=== PATIENT | male | born 1935 | race Caucasian/White ===

== ENCOUNTER 2017-04-05 17:46 | Inpatient (IN) | payer MEDICARE ==
[~2017-04-05 17:46] MED LIST: ANEXSIA 5/325 M1 TAB PO; ANTIVERT25 MG PO; ASPIR 8181 M1 PO; ASPIR-TRIN325 M2 PO; ASPIRIN325 M1 PO; ATIVAN0.5 MG PO; ATIVAN1 M2 PO; CARISOPRODOL350 MG PO; CEFTRIAXONE2 GM IV; COMBIVENT INH14.7 GM IH; COMBIVENT1 PUFF INH; CPAP; DELTASONE50 MG PO; DULCOLAX5 M1 PO; ENALAPRIL MALEAT5 M1 PO; FUROSEMIDE20 M1 PO; GLUCOSAMINE CH1 EAC6 PO; GLUCOSAMINE1000 M1 PO; IPRAT-ALBUT 0.5-3 ML IH; LEVAQUIN500 MG PO; LIPITOR10 M1 PO; LOPRESSOR50 MG PO; LORAZEPAM0.5 MG PO; LORAZEPAM2 MG PO; METOPROLOL TART50 M2 PO; MILK OF MAGNESIA PO; MIRALAX12 EA PO; MIRALAX17 G2 PO; MOBIC15 M2 PO; NAPROXEN SODIU220 M2 PO; NITROSTAT0.4 MG SL; NO MEDS; NYSTATIN60 ML PO; OMEPRAZOLE20 M3 PO; OXYGEN; PREDNISONE10 MG PO; PROTONIX40 M2 PO; ROXICODONE5 M2 PO; SIMVASTATIN10 M1 PO; SIMVASTATIN10 MG PO; STOOL SOFTENER1 EAC4 PO; STOOL SOFTENER100 M3 PO; SYMBICORT 160-4.6 GM IH; TASPRIN325 MG PO; TRAMADOL HCL50 M2 PO; TUMS200 MG PO; TYLENOL325 M2 PO; VITAMIN D2000 UNI1 PO
[2017-04-05 19:25] LABS: BASO % 0.1 % (0-2); EOS % 2.6 % (0-7); EOSINOPHIL ABSOLUTE COUNT 0.2 tho/cmm (0.0-0.7); HCT-HEMATOCRIT 40.5 % (36.0-53.5); HGB-HEMOGLOBIN 14.4 gm/dl (13.5-17.0); IMMATURE GRANULOCYTES ABSOLUTE 0.03 tho/cmm (0-0.03); IMMATURE GRANULOCYTES PERCENT 0.3 % (0-0.3); LYMPH % 14.5 % (20-45); LYMPH ABSOLUTE COUNT 1.3 tho/cmm (0.8-4.5); MCH (MEAN CORPUSCULAR HGB) 32.2 pg (28.0-32.0); MCHC MEAN CORPUSCULAR HGB CONC 35.6 % (32.0-36.0); MCV (MEAN CELL VOLUME) 90.6 fl (82.0-96.0); MEAN PLATELET VOLUME 10.7 cmc (9.4-12.4); MONO % 10.3 % (0-12); MONOCYTE ABSOLUTE COUNT 0.9 tho/cmm (0.0-1.2); NEUTROPHIL ABSOLUTE COUNT 6.5 tho/cmm (1.6-8.0); NEUTROPHIL-AUTOMATED 6.5 tho/cmm (1.6-8.0); NEUTROPHILS % 72.2 % (40-80); PLATELET COUNT 206 tho/cmm (150-450); RED BLOOD COUNT 4.47 mil/cmm (4.40-5.70); RED CELL DISTRIBUTION WIDTH 13.1 % (12.4-16.4)
[2017-04-05 19:26] LABS: ANION GAP 14 mmol/L (0-20); BLOOD UREA NITROGEN 14 mg/dl (6-24); CALCIUM 8.9 mg/dl (8.5-10.5); CARBON DIOXIDE-VENOUS 26 mmol/L (22-32); CHLORIDE 104 mmol/l (96-110); CREATININE 0.94 mg/dl (0.60-1.30); GLUCOSE 121 mg/dL (70-110); POTASSIUM 3.8 mmol/L (3.7-5.1); SODIUM 140 mmol/L (135-145); eGFR VALUE FOR BLACK 89 mL/Min
[2017-04-05 19:38] LABS: PROCALCITONIN 0.18 ng/ml (0.05-0.09)
[2017-04-05 20:16] LABS: ALB/GLOB RATIO 0.9 (0.8-2.0); ALBUMIN 3.3 g/dl (3.5-5.0); BILIRUBIN,DIRECT 0.2 mg/dl (0.0-0.3); BILIRUBIN,INDIRECT 0.4 mg/dL (0.0-1.0); BILIRUBIN,TOTAL 0.6 mg/dl (0.0-1.5)
[2017-04-05 20:22] LABS: URINE BILIRUBIN NEGATIVE (NEG); URINE BLOOD NEGATIVE (NEG); URINE GLUCOSE (UA) NEGATIVE (NEG); URINE KETONE NEGATIVE (NEG); URINE LEUKOCYTE ESTERASE NEGATIVE (NEG); URINE NITRITE NEGATIVE (NEG); URINE PROTEIN SMALL (NEG); URINE SPECIFIC GRAVITY 1.015 (1.003-1.030)
[2017-04-05 20:24] LABS: URINE COLOR YELLOW
[2017-04-05 20:25] LABS: URINE APPEARANCE CLEAR
[2017-04-05 20:27] LABS: URINE MUCUS 1+
[2017-04-05 20:28] LABS: URINE EPITHELIAL CELLS 0-1 /[HPF] (0-10); URINE RBC 0-3 /[HPF] (0-5); URINE WBC 0-2 /[HPF] (0-5)
[2017-04-05] MEDS ORDERED: TOPROL XL50 M1 PO (20:52)
[2017-04-05] MEDS ORDERED: CENTRUM COMPLE1 EAC1 PO (20:53)
[2017-04-06] MEDS ORDERED: ATIVAN1 M2 PO (09:51)
[2017-04-06] MEDS ORDERED: ELIQUIS5 M1 PO (09:52)
[2017-04-06] MEDS ORDERED: ALEVE220 M3 PO (09:53)
[2017-04-06 09:58] LABS: INR 1.1 INR (0.9-1.1); PROTHROMBIN TIME 12.9 SECONDS (9.0-13.6)
[2017-04-06 10:08] LABS: ALB/GLOB RATIO 0.9 (0.8-2.0); ALBUMIN 2.9 g/dl (3.5-5.0); BILIRUBIN,DIRECT 0.2 mg/dl (0.0-0.3); BILIRUBIN,INDIRECT 0.4 mg/dL (0.0-1.0); BILIRUBIN,TOTAL 0.6 mg/dl (0.0-1.5)
[2017-04-06 17:50] LABS: URINE BILIRUBIN NEGATIVE (NEG); URINE BLOOD NEGATIVE (NEG); URINE GLUCOSE (UA) NEGATIVE (NEG); URINE KETONE NEGATIVE (NEG); URINE LEUKOCYTE ESTERASE NEGATIVE (NEG); URINE NITRITE NEGATIVE (NEG); URINE PROTEIN NEGATIVE (NEG)
[2017-04-06 17:51] LABS: URINE APPEARANCE CLEAR; URINE COLOR YELLOW
[2017-04-07 06:17] LABS: BASO % 0.1 % (0-2); EOS % 3.8 % (0-7); EOSINOPHIL ABSOLUTE COUNT 0.3 tho/cmm (0.0-0.7); HCT-HEMATOCRIT 37.6 % (36.0-53.5); IMMATURE GRANULOCYTES ABSOLUTE 0.02 tho/cmm (0-0.03); IMMATURE GRANULOCYTES PERCENT 0.3 % (0-0.3); LYMPH % 11.6 % (20-45); LYMPH ABSOLUTE COUNT 0.8 tho/cmm (0.8-4.5); MCH (MEAN CORPUSCULAR HGB) 31.3 pg (28.0-32.0); MCHC MEAN CORPUSCULAR HGB CONC 34.6 % (32.0-36.0); MCV (MEAN CELL VOLUME) 90.6 fl (82.0-96.0); MEAN PLATELET VOLUME 10.5 cmc (9.4-12.4); MONO % 14.2 % (0-12); PLATELET COUNT 203 tho/cmm (150-450); RED BLOOD COUNT 4.15 mil/cmm (4.40-5.70); RED CELL DISTRIBUTION WIDTH 13.1 % (12.4-16.4); WHITE BLOOD COUNT 7.2 tho/cmm (4.0-10.0)
[2017-04-07 06:19] LABS: INR 1.1 INR (0.9-1.1); PROTHROMBIN TIME 12.8 SECONDS (9.0-13.6)
[2017-04-07 06:22] LABS: ALB/GLOB RATIO 0.9 (0.8-2.0); ALBUMIN 2.9 g/dl (3.5-5.0); ALKALINE PHOSPHATASE 307 U/L (33-138); ALT/SGPT 101 U/L (12-78); ANION GAP 14 mmol/L (0-20); BILIRUBIN,TOTAL 0.8 mg/dl (0.0-1.5); BLOOD UREA NITROGEN 7 mg/dl (6-24); CALCIUM 8.4 mg/dl (8.5-10.5); CARBON DIOXIDE-VENOUS 24 mmol/L (22-32); CHLORIDE 106 mmol/l (96-110); CREATININE 0.85 mg/dl (0.60-1.30); GLUCOSE 99 mg/dL (70-110); POTASSIUM 3.8 mmol/L (3.7-5.1); SODIUM 140 mmol/L (135-145); eGFR VALUE FOR BLACK >90 mL/Min
[2017-04-07 06:24] LABS: AST/SGOT 44 U/L (10-40)
[2017-04-08 05:24] LABS: BASO % 0.1 % (0-2); EOS % 5.2 % (0-7); EOSINOPHIL ABSOLUTE COUNT 0.4 tho/cmm (0.0-0.7); HCT-HEMATOCRIT 36.8 % (36.0-53.5); HGB-HEMOGLOBIN 12.8 gm/dl (13.5-17.0); IMMATURE GRANULOCYTES ABSOLUTE 0.01 tho/cmm (0-0.03); IMMATURE GRANULOCYTES PERCENT 0.1 % (0-0.3); LYMPH % 13.1 % (20-45); LYMPH ABSOLUTE COUNT 0.9 tho/cmm (0.8-4.5); MCH (MEAN CORPUSCULAR HGB) 31.6 pg (28.0-32.0); MCHC MEAN CORPUSCULAR HGB CONC 34.8 % (32.0-36.0); MCV (MEAN CELL VOLUME) 90.9 fl (82.0-96.0); MEAN PLATELET VOLUME 10.7 cmc (9.4-12.4); MONO % 15.9 % (0-12); MONOCYTE ABSOLUTE COUNT 1.1 tho/cmm (0.0-1.2); NEUTROPHIL ABSOLUTE COUNT 4.4 tho/cmm (1.6-8.0); NEUTROPHIL-AUTOMATED 4.4 tho/cmm (1.6-8.0); NEUTROPHILS % 65.6 % (40-80); PLATELET COUNT 216 tho/cmm (150-450); RED BLOOD COUNT 4.05 mil/cmm (4.40-5.70); RED CELL DISTRIBUTION WIDTH 13.2 % (12.4-16.4); WHITE BLOOD COUNT 6.7 tho/cmm (4.0-10.0)
[2017-04-08 05:34] LABS: ALB/GLOB RATIO 0.9 (0.8-2.0); ALBUMIN 2.8 g/dl (3.5-5.0); ALKALINE PHOSPHATASE 259 U/L (33-138); ALT/SGPT 69 U/L (12-78); ANION GAP 13 mmol/L (0-20); AST/SGOT 19 U/L (10-40); BILIRUBIN,TOTAL 0.6 mg/dl (0.0-1.5); BLOOD UREA NITROGEN 8 mg/dl (6-24); CALCIUM 8.5 mg/dl (8.5-10.5); CARBON DIOXIDE-VENOUS 24 mmol/L (22-32); CHLORIDE 108 mmol/l (96-110); CREATININE 0.84 mg/dl (0.60-1.30); GLUCOSE 102 mg/dL (70-110); SODIUM 141 mmol/L (135-145); eGFR VALUE FOR BLACK >90 mL/Min
[2017-04-08] MEDS ORDERED: TYLENOL325 M2 PO (10:31)
== END 2017-04-08 11:05 | DRG 445 ==
LOC: EDMED 17:46 → EMR2 22:29 → 5WF 22:43
PROVIDERS: Emergency Medicine; Internal Medicine Gastroenterology; Specialist; ADMIT Family Medicine
PROC: 5A09357 Assistance with Respiratory Ventilation, Less than 24 Consecutive Hours, Continuous Positive Airway Pressure (ICD-10-PCS; principal; 2017-04-06)
DX: R93.2 Abnormal findings on diagnostic imaging of liver and biliary tract (principal); J98.11 Atelectasis; I48.91 Unspecified atrial fibrillation; J44.9 Chronic obstructive pulmonary disease, unspecified; Z79.01 Long term (current) use of anticoagulants; I25.10 Atherosclerotic heart disease of native coronary artery without angina pectoris; Z87.891 Personal history of nicotine dependence; Z88.8 Allergy status to other drugs, medicaments and biological substances; Z79.82 Long term (current) use of aspirin; Z95.1 Presence of aortocoronary bypass graft; G47.33 Obstructive sleep apnea (adult) (pediatric); F41.9 Anxiety disorder, unspecified; E78.5 Hyperlipidemia, unspecified; I12.9 Hypertensive chronic kidney disease with stage 1 through stage 4 chronic kidney disease, or unspecified chronic kidney disease; N18.9 Chronic kidney disease, unspecified; M19.90 Unspecified osteoarthritis, unspecified site; Z92.21 Personal history of antineoplastic chemotherapy; Z79.899 Other long term (current) drug therapy; Z85.72 Personal history of non-Hodgkin lymphomas; R79.89 Other specified abnormal findings of blood chemistry
CPT/HCPCS: A9521; A9537; J2270; J2543; J7030